=== PATIENT | male | born 1995 | race Caucasian/White ===

== ENCOUNTER 2021-05-28 14:43 | Emergency (ER) | payer OTHER, BC, SELFPAY ==
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
[2021-05-28 14:44] VITALS: BP 158/87; PULSE 83; RESP 16; TEMP 36.8; O2SAT 98
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
[2021-05-28] MEDS: CYCLOBENZAPRINE HCL 10 MG TABLET PO (15:43)
[2021-05-28] MEDS: KETOROLAC (*BKC) 60 MG/2 ML VIAL IM (15:43)
[2021-05-28 16:54] VITALS: BP 131/84; PULSE 71; RESP 18; TEMP 37.1; O2SAT 100
== END 2021-05-28 16:57 | disposition home or self-care (01) ==
PROVIDERS: Emergency Provider Nurse Practitioner; PCP Emergency Medicine
DX: S39.012A Strain of muscle, fascia and tendon of lower back, initial encounter (principal); V49.40XA Driver injured in collision with unspecified motor vehicles in traffic accident, initial encounter; F17.220 Nicotine dependence, chewing tobacco, uncomplicated
CPT/HCPCS: 71046; 72100; 72170; 96372; 99284; A9270; J1885

== ENCOUNTER 2023-05-17 08:29 | Emergency (ER) | payer BC, SELFPAY ==
--- NOTE | ~2023-05-17 | US_ITS ---
EXAMINATION:US venous doppler LE RT INDICATION:Leg pain and swelling TECHNIQUE: Multiple grayscale, color flow and Doppler images of the right lower extremity deep venous systems were obtained and reviewed. COMPARISON:No prior studies for comparison. FINDINGS: The common femoral, superficial femoral and popliteal veins demonstrate normal respiratory variation, augmentation and compressibility. Color flow is also seen within the posterior tibial, pe roneal, greater saphenous and profunda veins. There is a complex fluid collection superficial soft ti ssues of the right upper leg, most likely hematoma/seroma, measuring 8.5 x 7.6 x 2.9 cm. IMPRESSION: 1: No lower extremity deep venous thrombosis. 2: Complex fluid collection superficial soft tissues of the right upper leg, most likely hematoma/se amster, measuring 8.5 x 7.6 x 2.9 cm. Infection not excluded. Clinically correlate. Reviewed, dictated and finalized at location L. IMPRESSION: 1: No lower extremity deep venous thrombosis. 2: Complex fluid collection superficial soft tissues of the right upper leg, m ost likely hematoma/seroma, measuring 8.5 x 7.6 x 2.9 cm. Infection not exclude d. Clinically correlate.
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
[2023-05-17 08:29] VITALS: BP 156/99; PULSE 75; RESP 16; TEMP 36.9; O2SAT 98
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
[2023-05-17 09:51] LABS: Basophils Absolute Auto 0.1 K/mm3 (0.0-0.1); Basophils Percent Auto 0.8 % (0.2-1.2); Eosinophils Absolute Auto 0.2 K/mm3 (0-0.3); Eosinophils Percent Auto 3.5 % (0-4.4); Hematocrit 45.6 % (42.0-52.0); Hemoglobin 15.5 g/dL (14.0-18.0); Immature Granulocyte Absolute 0.03 K/mm3 (0.00-0.031); Immature Granulocyte Percent A 0.5 % (0-0.5); Lymphocytes Absolute Auto 1.66 K/mm3 (0.9-3.2); Lymphocytes Percent Auto 27.6 % (18.3-44.2); Mean Corpuscular Hemoglobin 30.2 pg (26-34); Mean Corpuscular Volume 88.9 fl (80-100); Mean Platelet Volume 11.6 fl (7.4-10.4); Monocytes Absolute Auto 0.5 K/mm3 (0.1-0.6); Monocytes Percent Auto 8.5 % (2.6-8.5); Neutrophils Absolute Auto 3.6 K/mm3 (1.3-6.7); Neutrophils Percent Auto 59.1 % (45.5-73.1); Platelet Count Result 185 k/mm3 (150-375); Red Blood Count 5.13 M/mm3 (4.6-6.20); Red Cell Distribution Width 11.9 % (11.5-14.5)
[2023-05-17 09:52] LABS: Appearance Urine Clear (Clear); Bilirubin Urine Negative (Negative); Blood Urine Negative (Negative); Color Urine Yellow (Yellow); Glucose Urine UA Negative (Negative); Ketones Urine Negative (Negative); Leukocyte Esterase Ur Negative LEU/UL (Negative); Nitrate Urine Negative (Negative); Protein Urine Negative (Negative); Specific Grav Ur 1.004 (1.001-1.035); Urobilinogen Urine 0.2 mg/dL (<2.0); pH Urine 6.5 (5.0-9.0)
[2023-05-17 09:58] LABS: Alanine Aminotransferase 62 U/L (6-50); Albumin Level 4.6 g/dL (3.5-5.1); Alkaline Phosphatase 72 U/L (38-126); Anion Gap 7 mmol/L (8-16); Aspartate Amino Transferase 41 U/L (17-59); Bilirubin,Total 0.8 mg/dL (0.2-1.3); Blood Urea Nitrogen 11 mg/dL (9-20); Calcium 9.6 mg/dL (8.4-10.2); Carbon Dioxide 25 mmol/L (22-30); Chloride 105 mmol/L (98-107); Estimated CRCL calculation 153 ml/min; Estimated Glomerular Filt Rate > 60; Glucose 98 mg/dL (65-110); Potassium 4.4 mmol/L (3.4-5.0); Sodium 137 mmol/L (137-145)
[2023-05-17 10:16] LABS: Add Urine Microscopic? NO
[2023-05-17 10:30] VITALS: BP 132/74; PULSE 76; RESP 16; TEMP 36.8; O2SAT 98
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
[2023-05-17] MEDS: CYCLOBENZAPRINE HCL 10 MG TABLET PO (11:11)
[2023-05-17] MEDS: KETOROLAC (*BKC) 60 MG/2 ML VIAL IM (11:12)
[2023-05-17 11:20] VITALS: BP 124/78; PULSE 76; RESP 16; TEMP 36.7; O2SAT 98
== END 2023-05-17 11:21 | disposition home or self-care (01) ==
PROVIDERS: Emergency Provider Nurse Practitioner Family
DX: S70.11XA Contusion of right thigh, initial encounter (principal); F17.220 Nicotine dependence, chewing tobacco, uncomplicated; V86.55XA Driver of 3- or 4- wheeled all-terrain vehicle (ATV) injured in nontraffic accident, initial encounter
CPT/HCPCS: 36415; 73521; 80053; 81003; 85025; 93971; 96372; 99284; A9270; J1885